=== PATIENT | female | born 1995 | race Caucasian/White ===

== ENCOUNTER → 2024-03-06 | Outpatient (CLI) | payer OTHER ==
[~2024-03-06] MED LIST: AMPDEX10CR PO; DULO60 PO; FAMO40 PO; ONDA4ODT MM; PANT40 PO; TRAZ100 PO
[2024-03-06 19:46] LABS: BASOPHILS ABSOLUTE AUTO 0.03 K/mm3 (0.00-0.23); BASOPHILS PERCENT AUTO 0 % (0-2); EOSINOPHILS PERCENT AUTO 1 % (0-6); Hematocrit 38.2 % (33.0-51.0); Hemoglobin 12.4 g/dL (11.5-16.0); IMMATURE GRAN ABSOLUTE AUTO 0.03 K/mm3 (0.00-0.10); IMMATURE GRAN PERCENT AUTO 0 % (0-1); LYMPHOCYTES ABSOLUTE AUTO 2.57 K/mm3 (0.84-5.20); LYMPHOCYTES PERCENT AUTO 36 % (21-46); MONOCYTES ABSOLUTE AUTO 0.54 K/mm3 (0.16-1.47); MONOCYTES PERCENT AUTO 8 % (4-13); Mean Corpuscular HGB 25.2 pg (26.0-34.0); Mean Corpuscular HGB Conc 32.5 g/dL (31.5-36.5); Mean Corpuscular Volume 78 fL (80-100); Mean Platelet Volume 10.7 fL (9.1-12.4); NEUTROPHILS ABSOLUTE AUTO 3.79 K/mm3 (1.96-9.15); NEUTROPHILS PERCENT AUTO 54 % (41-73); Platelet Count 306 K/mm3 (150-400); RDW Coefficient Variation 15.5 % (11.7-14.2); RDW Standard Deviation 43.6 fL (35.1-46.3); Red Blood Cell Count 4.92 M/mm3 (3.80-5.20); White Blood Cell Count 7.06 K/mm3 (4.00-11.30)
[2024-03-06 19:58] LABS: CHOL/HDL RATIO 5.7; Cholesterol 201 mg/dL (50-200); Ferritin, Serum 20 ng/mL (8-252); HDL Cholesterol 35 mg/dL (>39); Iron Serum 28 ug/dL (50-170); LDL/HDL RATIO 3.3; Low Density Lipoprotein Chol 114 mg/dL (0-110); Percent Saturation 7.2 % (15.0-50.0); Total Iron Binding Capacity 390 ug/dL (250-450); Triglycerides 258 mg/dL (30-140); Very Low Density Lipoprot Chol 51 mg/dL (6-28)
[2024-03-08 22:56] LABS: ESTRADIOL BY IMMUNOASSAY 28 pg/mL
[2024-03-08 23:15] LABS: DHEAS 195 ug/dL (99-340)
[2024-03-10 22:01] LABS: ANTI-MULLERIAN HORMONE 5.386 ng/mL (0.176-11.705)
[2024-03-11 19:40] LABS: TESTOSTERONE BY MASS SPEC 23 ng/dL (9-55)
[2024-03-11 19:45] LABS: TESTOSTERONE, FREE MASS SPEC 4.8 pg/mL (0.8-7.4)
== END | disposition home or self-care (01) ==
LOC: LAB 18:47 → LAB SHORT 18:47
PROVIDERS: General Practice
DX: Z31.41 Encounter for fertility testing (principal); E28.2 Polycystic ovarian syndrome; N92.0 Excessive and frequent menstruation with regular cycle
CPT/HCPCS: 80061; 82627; 82670; 82728; 83002; 83036; 83520; 83540; 83550; 84146; 84402; 84403; 84443; 85025

== ENCOUNTER → 2024-03-26 | Outpatient (CLI) | payer OTHER ==
[2024-03-26 19:48] LABS: Follicle Stimulating Hormone 4.5 mIU/ml
[2024-03-30 17:42] LABS: ESTRADIOL BY IMMUNOASSAY 78 pg/mL
[2024-03-31 15:25] LABS: ANTI-MULLERIAN HORMONE 5.4 ng/mL (0.176-11.705)
== END ==
LOC: LAB SHORT 18:43 → LAB 18:43
PROVIDERS: General Practice
DX: E28.2 Polycystic ovarian syndrome (principal)
CPT/HCPCS: 82670; 83001; 83002; 83520

== ENCOUNTER 2024-09-13 17:13 | Emergency (ER) | payer OTHER ==
[~2024-09-13] VITALS: Ht 170.2 cm; Wt 119.3 kg
[~2024-09-13 17:13] MED LIST changes: -TRAZ100 PO; +TRAZ50 PO
[2024-09-13 17:50] LABS: BASOPHILS ABSOLUTE AUTO 0.04 K/mm3 (0.00-0.23); BASOPHILS PERCENT AUTO 1 % (0-2); EOSINOPHILS PERCENT AUTO 1 % (0-6); Hematocrit 40.5 % (33.0-51.0); Hemoglobin 13.5 g/dL (11.5-16.0); IMMATURE GRAN ABSOLUTE AUTO 0.02 K/mm3 (0.00-0.10); IMMATURE GRAN PERCENT AUTO 0 % (0-1); LYMPHOCYTES ABSOLUTE AUTO 2.14 K/mm3 (0.84-5.20); LYMPHOCYTES PERCENT AUTO 27 % (21-46); MONOCYTES ABSOLUTE AUTO 0.43 K/mm3 (0.16-1.47); MONOCYTES PERCENT AUTO 6 % (4-13); Mean Corpuscular HGB 26.5 pg (26.0-34.0); Mean Corpuscular HGB Conc 33.3 g/dL (31.5-36.5); Mean Corpuscular Volume 80 fL (80-100); Mean Platelet Volume 9.3 fL (9.1-12.4); NEUTROPHILS ABSOLUTE AUTO 5.07 K/mm3 (1.96-9.15); NEUTROPHILS PERCENT AUTO 65 % (41-73); Platelet Count 254 K/mm3 (150-400); RDW Coefficient Variation 14.3 % (11.7-14.2); RDW Standard Deviation 41.2 fL (35.1-46.3); Red Blood Cell Count 5.09 M/mm3 (3.80-5.20)
[2024-09-13 18:11] LABS: Source, Urine Clean Catch
[2024-09-13 18:16] LABS: Appearance, Urine Clear (Clear); Bilirubin, Urine Neg (Neg); Blood, Urine Neg (Neg); Color, Urine Yellow (P-Yellow); Glucose Qualitative, Urine Neg (Neg); Ketones, Urine Neg (Neg); Leukocyte Esterase, Urine 1+ (Neg); Nitrite, Urine Neg (Neg); Protein, Urine Neg (Neg); Urobilinogen, Urine NORM (Normal)
[2024-09-13 18:20] LABS: Albumin, Blood 3.5 g/dL (3.4-5.0); Albumin/Globulin Ratio 0.8 (0.8-1.8); Bilirubin, Total 0.6 mg/dL (0.1-1.0); Bun/Creatinine Ratio 17.2 (12.0-20.0); Calcium, Blood 9.3 mg/dL (8.5-10.1); Creatinine, Blood 0.64 mg/dL (0.40-1.00); Globulin, Blood 4.2 g/dL (2.2-4.0); Potassium, Blood 4.2 mmol/L (3.5-5.5); Total Protein, Blood 7.7 g/dL (6.4-8.2)
[2024-09-13 18:28] LABS: Bacteria Few /hpf; Red Blood Cells, Urine Not Seen /hpf (0-2); Squamous Epithelial Cells Many /hpf (Few)
[2024-09-13] MEDS ORDERED: Ketorolac Tromethamine 15mg Vial IV ONE (20:20)
[2024-09-13] MEDS ORDERED: Ondansetron HCl 2 MG / ML 2ML Vial IV ONE (20:20)
[2024-09-17] MEDS ORDERED: HYDHCL25 PO (12:46)
[2024-09-17] MEDS ORDERED: ROSUVASTATIN CA10 MG PO (12:46)
[2024-09-17] MEDS ORDERED: RIZATRIPTAN10 MG SL (12:53)
== END 2024-09-13 20:58 | disposition home or self-care (01) ==
LOC: ER 17:13
PROVIDERS: Physician Assistant
DX: K59.00 Constipation, unspecified (principal); R10.12 Left upper quadrant pain; Z79.899 Other long term (current) drug therapy; Z88.1 Allergy status to other antibiotic agents; Z88.8 Allergy status to other drugs, medicaments and biological substances
CPT/HCPCS: 36415; 74177; 80053; 81001; 81025; 83690; 85025; 87086; 87147; 96374-59; 96375; 99284-25; J1885; J2405; Q9967

== ENCOUNTER → 2024-10-07 | Outpatient (CLI) | payer OTHER ==
[~2024-10-07] MED LIST changes: +HYDHCL25 PO; +REXULTI0.5 MG; +RIZATRIPTAN10 MG SL; +ROSUVASTATIN CA10 MG PO
[2024-10-07 18:26] LABS: Bacterial Vaginosis PCR Negative (NEGATIVE); Candida Group, PCR NOT DETECTED (NOT DETECT); Candida glabrata-krusei, PCR NOT DETECTED (NOT DETECT)
== END | disposition home or self-care (01) ==
LOC: LAB SHORT 15:48 → LAB 15:48
PROVIDERS: Family Medicine
DX: N89.8 Other specified noninflammatory disorders of vagina (principal)
CPT/HCPCS: 81515

== ENCOUNTER 2024-10-09 08:49 | Day surgery (SDC) | payer OTHER ==
[~2024-10-09] VITALS: Ht 170.2 cm; Wt 120.7 kg
[~2024-10-09 08:49] MED LIST changes: +Lactated Ringer's 1,000 ML IV ONE; -REXULTI0.5 MG; +propofoL 50 ML IV ONE
[2024-10-09] MEDS ORDERED: REXULTI0.5 MG (09:18)
[2024-10-09] MEDS ORDERED: Lactated Ringer's 1,000 ML IV ONE (09:55)
[2024-10-09] MEDS ORDERED: Dexmedetomidine HCL 200 MCG / 2 ML ONE (10:08)
[2024-10-09] MEDS ORDERED: Glycopyrrolate 0.2 MG/ML 5ML VIAL IV ONE (14:37)
== END 2024-10-09 10:51 | disposition home or self-care (01) ==
LOC: ORSCSDS 08:49
PROVIDERS: Internal Medicine Gastroenterology
PROC: 0DJD8ZZ Inspection of Lower Intestinal Tract, Via Natural or Artificial Opening Endoscopic (ICD-10-PCS; principal; 2024-10-09 10:00)
DX: R10.9 Unspecified abdominal pain (principal); K58.9 Irritable bowel syndrome, unspecified; K21.9 Gastro-esophageal reflux disease without esophagitis; Z87.11 Personal history of peptic ulcer disease; Z87.19 Personal history of other diseases of the digestive system; F41.9 Anxiety disorder, unspecified; F32.A Depression, unspecified; E66.9 Obesity, unspecified; Z68.41 Body mass index [BMI] 40.0-44.9, adult; Z79.899 Other long term (current) drug therapy
CPT/HCPCS: 82947; J2704; J7120

== ENCOUNTER → 2024-11-14 | Outpatient (CLI) | payer OTHER ==
[~2024-11-14] MED LIST changes: -Lactated Ringer's 1,000 ML IV ONE; +REXULTI0.5 MG; -propofoL 50 ML IV ONE
== END | disposition home or self-care (01) ==
LOC: LAB 20:20 → LAB SHORT 20:20
DX: R10.10 Upper abdominal pain, unspecified (principal)
CPT/HCPCS: 87338

== ENCOUNTER → 2025-08-13 | Outpatient (CLI) | payer OTHER ==
[2025-08-13 19:33] LABS: Influenza A/2009-H1 Not Detected (NOT DETECT); SARS-Cov-2 (COVID-19), BioFire Not Detected (NOT DETECT)
== END ==
LOC: LAB 11:17 → LAB SHORT 11:17
PROVIDERS: Student in an Organized Health Care Education/Training Program
DX: J06.9 Acute upper respiratory infection, unspecified (principal); J02.9 Acute pharyngitis, unspecified
CPT/HCPCS: 0202U